=== PATIENT | female | born 2000 | race Caucasian/White ===

== ENCOUNTER 2021-12-27 10:47 | Emergency (ER) | payer OTHER ==
[~2021-12-27] VITALS: Ht 165.1 cm; Wt 49.6 kg
== END 2021-12-27 16:13 | disposition home or self-care (01) ==
LOC: ED 10:47
DX: S39.012A Strain of muscle, fascia and tendon of lower back, initial encounter (principal); W01.10XA Fall on same level from slipping, tripping and stumbling with subsequent striking against unspecified object, initial encounter
CPT/HCPCS: 36415; 72100; 80053; 81001; 84703; 85025; 96374; 99283-25; J2405; J7030